=== PATIENT | male | born 1955 | race Caucasian/White ===

== ENCOUNTER 2016-11-25 09:28 | Emergency (ER) ==
[2016-11-25 09:34] VITALS: BP 96/62; TEMP 97.2; BMI 42.5
[2016-11-25 10:14] LABS: BASOPHILS # (AUTO) 0.1 K/uL (0-0.2); BASOPHILS % (AUTO) 0.5 % (0.0-3.0); EOSINOPHILS # (AUTO) 0.1 K/ul (0.0-0.7); EOSINOPHILS % (AUTO) 0.6 % (0.0-7.0); HEMATOCRIT 41.1 % (42.0-52.0); HEMOGLOBIN 14.5 g/dl (14.0-18.0); IMMATURE GRANULOCYTE % (AUTO) 0.4 % (0.0-5.0); LYMPHOCYTES # (AUTO) 1.8 K/uL (0.60-3.4); LYMPHOCYTES % (AUTO) 13.5 (10.0-50.0); MEAN CORPUSCULAR HGB CONC 35.3 (31.8-35.4); MEAN CORPUSCULAR VOLUME 82.2 fl (80.0-94.0); MONOCYTES # (AUTO) 0.8 K/uL (0.4-2.0); MONOCYTES % (AUTO) 6.1 (0-10); NEUTROPHILS # (AUTO) 10.3 K/ul (2.0-6.9); NEUTROPHILS % (AUTO) 78.9; PLATELET COUNT 298 10^3/uL (140-440); WHITE BLOOD COUNT 13.01 K/ul (4.2-10.2)
--- NOTE | 2016-11-25 10:29 | DI ---
EXAM: Chest one view HISTORY: Cough COMPARISON: None TECHNIQUE: Single view of the chest was performed FINDINGS: The lungs are grossly clear, noting left lung base, poorly visualized due to AP portable technique. There is no definite pleural effusion or visible pneumothorax. The heart is normal in s ize. The mediastinal contour is normal. There is cervical spinal fusion hardware. There are no acut e abnormalities of the bones. IMPRESSION: No acute cardiopulmonary process identified, noting limited evaluation left lung base
[2016-11-25 10:35] LABS: PARTIAL THROMBOPLASTIN TIME 25.9 SEC (23.9-40.0); PROTHROMBIN TIME 10.7 SEC (9.3-11.0)
--- NOTE | 2016-11-25 10:51 | US ---
EXAM: Ultrasound bilateral carotid duplex. HISTORY: Syncope. COMPARISON: None available. TECHNIQUE: Multiple benz scale and color Doppler images were obtained. FINDINGS: Please note that estimates of internal carotid artery stenoses are based upon NASCET diana perez. Right carotid: Mixed plaquing present which does not cause a visible 50% or greater stenosis. Peak systolic velocity measurement in the right internal carotid artery is 1.4 meters per second. Right internal to common carotid artery peak systolic velocity ratio measures 1.1. End diastolic velocit y measurement in the right internal carotid artery is 0.2 meters per second. Flow in the right vert ebral artery is antegrade. Left carotid: Mixed plaquing present which does not cause a visible 50% or greater stenosis. There are plaquing appears greater on the left than the right. Peak systolic velocity measurement in the left internal carotid artery is 1.5 meters per second. Left internal to common carotid artery peak systolic velocity ratio measures 1.4. End diastolic velocity measurement in the left internal pemberton tid artery measures 0.3 meters per second. Flow in the left vertebral artery is antegrade. IMPRESSION: 1. Atherosclerosis without visualized 50% or greater stenosis, greater on the left. Mildly elevate d velocities in both internal carotid arteries without evidence for 50% or greater stenosis. 2. Antegrade flow in both vertebral arteries.
--- NOTE | 2016-11-25 10:52 | CT ---
EXAM: CT BRAIN HISTORY: Fall, head injury TECHNIQUE: CT brain without intravenous contrast. 5-mm axial sections with Reformations. COMPARISON: None FINDINGS: Brain is unremarkable without distinct evidence of hemorrhage or large vessel distribution recent ischemic infarction. There is no suggestion of acute hydrocephalus or subdural fluid collection. N o mass or mass effect. Cranium is within normal limits. Mastoid air cells are aerated. The visualized paranasal sinuses r eveal possible mucosal thickening posteriorly in the left maxillary sinus. IMPRESSION: No injuries identified.
--- NOTE | 2016-11-25 10:57 | CT ---
EXAM: CT cervical spine without contrast. HISTORY: Initial presentation for neck injury due to a fall. COMPARISON: None available. TECHNIQUE: Multiple axial images of the cervical spine were obtained without intravenous contrast. Images were reformatted in the sagittal and coronal planes. FINDINGS: ACDF changes noted from C4-C6 with osseous incorporation across the C4-5 vertebral bodies and to a lesser extent the C5-6 vertebral bodies. Hardware appears intact. Curvature and alignmen t are normal. Vertebral body heights are maintained. There is mild loss of disc height at C3-4. N o fracture or subluxation identified. Disc osteophyte formation causes mild central canal stenosis at C3-4. Multilevel uncovertebral hypertrophy and facet arthropathy cause multilevel neural foramin al narrowing, moderate to severe at C3-4 bilaterally, C5-6 on the right and C6-7 on the right and mo re mild elsewhere. Paravertebral soft tissues without acute abnormality. Atherosclerotic calcifica tions are present in the lung apices are clear.. IMPRESSION: 1. No fracture or subluxation. 2. Postoperative and degenerative changes as described.
[2016-11-25] MEDS ORDERED: SODIUM CHLORIDE 1,000 ML IV STA (11:05)
[2016-11-25 11:06] LABS: ALBUMIN 3.7 g/dL (3.4-5.0); ALBUMIN/GLOBULIN RATIO 1.19; BILIRUBIN,TOTAL 0.74 mg/dL (0.00-1.20); CALCIUM 9.3 mg/dL (8.2-10.2); TOTAL PROTEIN 6.8 g/dL (5.8-8.1); TROPONIN I 0.11 ng/ml (0.0000-0.4000)
[2016-11-25 11:07] LABS: CREATININE 7.58 mg/dL (0.60-1.10)
[2016-11-25 11:08] LABS: BUN/CREATININE RATIO 17.94
[2016-11-25 11:10] LABS: CREATINE KINASE MB 7.2 ng/ml (0.0-3.6)
[2016-11-25] MEDS ORDERED: ROCEPHIN 1 GM in SODIUM CHLORIDE 50 ML IV STA (11:15)
[2016-11-25] MEDS ORDERED: ROCEPHIN ONE (11:21)
--- NOTE | 2016-11-25 11:33 | ED.PDOC ---
General ED Provider: Dr. CANDACE KELLEY Chief Complaint: Weakness Stated Complaint: SYNCOPE Time Seen by Physician: 09:30 Mode of Arrival: Wheelchair Information Source: Patient, Police, Nurse Exam Limitations: No limitations Primary Care Provider: MARIA E JEWELL Nursing and Triage Documentation Reviewed and Agree: Yes Neurological Complaint Exam - Syncope/Near Syncope Complaint/Exam Onset/Duration: intermittent for 7 days appeared weak arrived with left supper eyelid bruse Symptoms Are: Still present (interms of left eyelid brsing and abrasion face) Number of Episodes: intermittent x 7 days Frequency of Episodes: see above Episodes Witnessed: No (police stated none witnessed ) Associated Head Trauma: No (but due to facial trauma ct brain cspine was obtained ) Activity at Onset: With exertion (walking) Aggravating: None Alleviating: Reports: Spontaneous resolution Associated Signs and Symptoms: Reports: Weakness. Denies: Pain, Decreased oral intake, Vomiting, Diarrhea, GI blood loss, Short of air, Chest pain, Palpitations, Diaphoresis, Lightheadedness, Dizziness, AMS, Numbness, Headache, Seizure, Remote head trauma, Recent head trauma Related History: Similar episode (over 7 days span) Cardiac Risk Factors: Reports: Hypertension GI Bleed Risk Factors: Reports: None Dysrhythmia Risk Factors: Reports: >45 years old (history of afib which was abelated 10 years ago) Related Surgical History: Reports: None JVD Present: No Carotid Bruit Present: No Rectal Heme Positive: No Glascow Coma Scale (see protocol): 15 Nystagmus Present: No Gag Reflex Present: Yes Meningeal Signs Positive: No Focal Weakness: Present: None Focal Sensory Loss: Present: None Gait: Unable [id number]: Normal Findings Differential Diagnoses: CAD, TN, Dysrhythmia, GI Bleed, Metabolic Reaction, Pulmonary Embolism Quality Indicators for Cardiac Chest Pain: EKG in 10min. Quality Indicator For Non-Traumatic Chest Pain/Syncope: EKG Performed Quality Indicators for AMI: EKG in 10min. Review of Systems - Review Of Systems Constitutional: Reports: Malaise, Weakness Eyes: Reports: No symptoms Ears, Nose, Mouth, Throat: Reports: No symptoms Respiratory: Reports: No symptoms Cardiac: Reports: Syncope GI: Reports: No symptoms : Reports: No symptoms Musculoskeletal: Reports: No symptoms Skin: Reports: Other (BRUSING LEFT ORBIT AND FACE) Neurological: Reports: No symptoms Endocrine: Reports: No symptoms Hematologic/Lymphatic: Reports: No symptoms All Other Systems: Reviewed and Negative Past Medical History - Past Medical History Previously Healthy: No Endocrine: Reports: None Cardiovascular: Reports: Hypertension, A-Fib (intermittent was abelated 10 years ago) Respiratory: Reports: None Hematological: Reports: None Gastrointestinal: Reports: GERD Genitourinary: Reports: None Neuro/Psych: Reports: None Musculoskeletal: Reports: None Cancer: Reports: None - Surgical History General Surgical History: Reports: Unknown - Family History Family History: Reports: Unknown - Social History Smoking Status: Never smoker Hx Substance Use: No Alcohol Screening: None Physical Exam - Physical Exam Appearance: Well-appearing Eyes: DINA, EOMI (left eyelid brused ) ENT: Ears normal, Nose normal, Oropharynx normal Respiratory: Airway patent, Breath sounds clear, Breath sounds equal, Respirations nonlabored Cardiovascular: RRR, Pulses normal, No rub, No murmur GI/: Soft, Nontender, No masses, Bowel sounds normal, No Organomegaly Musculoskeletal: Normal strength, ROM intact, No edema, No calf tenderness Skin: Warm, Dry, Normal color Neurological: Sensation intact, Motor intact, Reflexes intact, Cranial nerves intact, Alert, Oriented Psychiatric: Affect appropriate, Mood appropriate Interpretation - Radiology Interpretation Radiology Interpretation By: Radiologist (negative c spine , brain ct for acute event) Radiology Results: Negative Exam Interpreted: 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 Rate: Normal Rhythm: Sinus Ectopy: None (normal sinus rytm normal axis elevated QT INTERVAL RBBB ) Re-Evaluation - Re-Evaluation Time of Re-Evaluation: 10:30 Status: Improved Vital Signs Stable: Yes Pain Level: 0 Appearance: NAD Lungs: Clear Skin: Warm and Dry Neuro: Alert and Oriented X3 CV: RRR - Re-Evaluation Time of Re-Evaluation: 11:44 Status: Improved Vital Signs Stable: Yes Pain Level: 0 Appearance: NAD Skin: Warm and Dry Neuro: Alert and Oriented X3 CV: RRR Physician Notification - Case Discussed Physician Notified: Patricia Polk Time of Notification: 11:45 (TRANSFER TO [facility] ) Critical Care Note - Critical Care Note Total Time (mins): 0 Course - Course Hematology/Chemistry: 11/25/16 10:05 11/25/16 10:05 Orders, Labs, Meds: Lab Review 11/25/16 10:05 WBC 13.01 H RBC 5.00 Hgb 14.5 Hct 41.1 L MCV 82.2 MCH 29.0 MCHC 35.3 RDW Coeff of Bertha 12.2 Plt Count 298 Immature Gran % (Auto) 0.4 Neut % (Auto) 78.9 Lymph % (Auto) 13.5 Darke % (Auto) 6.1 Eos % (Auto) 0.6 Baso % (Auto) 0.5 Immature Gran # (Auto) 0.1 Neut # 10.3 H Lymph # 1.8 Darke # 0.8 Eos # 0.1 Baso # 0.1 PT 10.7 INR 1.04 APTT 25.9 Sodium 129 L Potassium 4.0 Chloride 87 L Carbon Dioxide 21 L Anion Gap 25.0 BUN 136 H* Creatinine 7.58 H* Estimated GFR (MDRD) 7.00 BUN/Creatinine Ratio 17.94 Glucose 112 Calcium 9.3 Total Bilirubin 0.74 AST 26 ALT 66 Alkaline Phosphatase 92 Total Creatine Kinase 182 CK-MB (CK-2) 7.2 H* CK-MB (CK-2) % 3.80823 Troponin I 0.1100 Total Protein 6.8 Albumin 3.7 Globulin 3.1 Albumin/Globulin Ratio 1.19 TSH 0.689 Free T4 1.10 Orders Category Date Time Status EKG-(ED ONLY) Stat CARDIO 11/25/16 09:47 Completed BLOOD CULTURE Stat LAB 11/25/16 10:05 Received CBC W/ AUTO DIFF Stat LAB 11/25/16 10:05 Completed COMPREHENSIVE METABOLIC PANEL Stat LAB 11/25/16 10:05 Completed CREATINE KINASE Stat LAB 11/25/16 10:05 Completed FREE T4 (FREE THYROXINE) Stat LAB 11/25/16 10:05 Completed LACTIC ACID Stat LAB 11/25/16 11:14 Ordered PARTIAL THROMBOPLASTIN TIME Stat LAB 11/25/16 10:05 Completed PT WITH INR Stat LAB 11/25/16 10:05 Completed THYROID STIMULATING HORMONE Stat LAB 11/25/16 10:05 Completed TROPONIN I Stat LAB 11/25/16 10:05 Completed UA [URINALYSIS C & S IF INDICATED] Stat LAB 11/25/16 09:49 Uncollected Ceftriaxone Sodium [Rocephin] MEDS 11/25/16 11:21 Discontinued 1 gm .ROUTE .STK-MED ONE Ceftriaxone Sodium [Rocephin] 1 gm MEDS 11/25/16 11:15 Active 0.9 % Sodium Chloride [Sodium Chloride] 50 ml IV ONCE Sodium Chloride 0.9% [Sodium Chloride] 1,000 ml MEDS 11/25/16 11:05 Active IV BOLUS CHEST, 1V AP ONLY Stat RADS 11/25/16 09:[address] ABD/PEL WO RENAL STONE PROT Stat RADS 11/25/16 11:[address] CERVICAL SPINE W/O CONTRAST Stat RADS 11/25/16 09:[address] HEAD W/O CONTRAST Stat RADS 11/25/16 09:48 Completed ULTRASOUND DOPPLER CAROTID [U/S DOPPLER CAROTID] Stat RADS 11/25/16 09:47 Completed Medications Generic Name Dose Route Start Last Admin Trade Name Freq PRN Reason Stop Dose Admin Sodium Chloride 1,000 mls @ 1,000 mls/hr 11/25/16 11:05 11/25/16 11:07 Sodium Chloride IV 11/25/16 12:04 1,000 mls/hr BOLUS STA Administration Ceftriaxone Sodium 1 gm/ 50 mls @ 75 mls/hr 11/25/16 11:15 11/25/16 11:26 Sodium Chloride IV 11/25/16 11:54 75 mls/hr ONCE STA Administration Vital Signs: Temp Pulse Resp BP Pulse Ox 11/25/16 09:28 97.2 F L 80 18 96/62 98 Departure - Departure Time of Disposition: 11:45 Disposition: HOME SELF-CARE Discharge Problem: Renal failure Instructions: Weakness (ED) Condition: Good Pt referred to PMD for follow-up: Yes (TRANSFER TO [facility] ) Allergies/Adverse Reactions: Allergies [id number] Reductase Inhibitor Adverse Reaction (Verified 11/25/16 09:34) Home Medications: Ambulatory Orders Gabapentin [Neurontin] 300 mg PO BID 11/25/16 Metoprolol Tartrate [Lopressor] 25 mg PO BID 11/25/16 Omeprazole [Prilosec] 20 mg PO QDAC 11/25/16 Disposition Discussed With: Patient
[2016-11-25] MEDS ORDERED: URO-JET MUCOUSMEMB STA (11:47)
--- NOTE | 2016-11-25 12:07 | CT ---
EXAM: CT abdomen pelvis without contrast HISTORY: Acute renal failure COMPARISON: None TECHNIQUE: CT abdomen pelvis performed without intravenous contrast. Coronal and sagittal reformat christopher images obtained. FINDINGS: There is granulomatous calcification of the lung bases. No free air. No acute abnormali ties of the bones. Evaluation organ parenchyma limited without contrast. Heart normal in size. Li koko appears normal. Gallbladder appears normal. Pancreas appears normal. Granulomatous calcificat ion in the spleen. Spleen otherwise appears normal. Adrenals appear normal. No hydronephrosis or nephrolithiasis. There is a 0.7 cm hyperdense left renal cyst. There is 2.2 cm left parapelvic cys t. No hydronephrosis or nephrolithiasis. No calculi visualized in the normal course of the ureters . Bladder is only mildly distended and poorly evaluated. Suspect mild bladder wall thickening. Pr ostate normal in size with calcification. Small bilateral fat containing inguinal hernias Aorta is normal in caliber with atherosclerosis of the aorta and its branches. No lymphadenopathy or ascite s. Stomach appears normal. No dilated loops small bowel. Appendix appears normal. Mild colonic d iverticulosis. Small fat-containing umbilical hernia. IMPRESSION: 1. No hydronephrosis or nephrolithiasis. 2. Suspect mild bladder wall thickening may relate to cystitis or change from chronic outlet obstru ction. Recommend clinical correlation. 3. Left parapelvic cyst. Sub centimeter hyperdense/hemorrhagic left renal cyst. 4. Mild colonic diverticulosis. 5. Atherosclerosis.
[2016-11-25] MEDS ORDERED: SODIUM CHLORIDE 500 ML IV STA (12:15)
[2016-11-25] MEDS ORDERED: LOTRISONE 15 GM TP STA (12:23)
[2016-11-25 12:53] LABS: BILIRUBIN,URINE Negative (NEGATIVE); KETONES,URINE Negative (NEGATIVE); LEUKOCYTE ESTERASE ,URINE Negative (NEGATIVE); NITRITE,URINE Negative (NEGATIVE); PROTEIN,URINE Negative (NEGATIVE); URINE, BLOOD 1+ (NEGATIVE)
[2016-11-25 12:54] LABS: ADD URINE MICROSCOPIC YES
== END 2016-11-25 13:41 | disposition short-term general hospital (02) ==
LOC: ED 09:28
DX: N19 Unspecified kidney failure (principal); R53.1 Weakness; S00.12XA Contusion of left eyelid and periocular area, initial encounter; S00.81XA Abrasion of other part of head, initial encounter; I10 Essential (primary) hypertension; L30.4 Erythema intertrigo
CPT/HCPCS: 36415; 74176; 80053; 81001; 82550; 82553; 83605; 84439; 84443; 84484; 85025; 85379; 85610; 85730; 87040; 93005; 93010; 96361; 96365; 99285

== ENCOUNTER 2016-11-25 13:31 | Outpatient (CLI) ==
[2016-11-25 09:34] VITALS: BMI 42.5
== END 2016-11-25 13:32 | disposition home or self-care (01) ==
LOC: AMBL 13:31
PROVIDERS: ATTEND Internal Medicine
DX: N19 Unspecified kidney failure (principal)

== ENCOUNTER 2017-01-06 09:17 | Outpatient (CLI) ==
[2017-01-06 09:31] LABS: BASOPHILS # (AUTO) 0.1 K/uL (0-0.2); BASOPHILS % (AUTO) 0.7 % (0.0-3.0); EOSINOPHILS # (AUTO) 0.3 K/ul (0.0-0.7); EOSINOPHILS % (AUTO) 2.8 % (0.0-7.0); HEMATOCRIT 37.5 % (42.0-52.0); HEMOGLOBIN 12.6 g/dl (14.0-18.0); IMMATURE GRANULOCYTE % (AUTO) 0.4 % (0.0-5.0); LYMPHOCYTES # (AUTO) 2.2 K/uL (0.60-3.4); LYMPHOCYTES % (AUTO) 20.8 (10.0-50.0); MEAN CORPUSCULAR HEMOGLOBIN 29.7 pg (27.0-31.0); MEAN CORPUSCULAR HGB CONC 33.6 (31.8-35.4); MEAN CORPUSCULAR VOLUME 88.4 fl (80.0-94.0); MONOCYTES # (AUTO) 0.7 K/uL (0.4-2.0); MONOCYTES % (AUTO) 6.5 (0-10); NEUTROPHILS # (AUTO) 7.4 K/ul (2.0-6.9); NEUTROPHILS % (AUTO) 68.8; PLATELET COUNT 252 10^3/uL (140-440); RED BLOOD COUNT 4.24 10^6/ul (4.70-6.10); WHITE BLOOD COUNT 10.74 K/ul (4.2-10.2)
[2017-01-06 09:35] LABS: ADD URINE MICROSCOPIC NO; BILIRUBIN,URINE Negative (NEGATIVE); KETONES,URINE Negative (NEGATIVE); LEUKOCYTE ESTERASE ,URINE Negative (NEGATIVE); NITRITE,URINE Negative (NEGATIVE); PROTEIN,URINE Negative (NEGATIVE); URINE, BLOOD Negative (NEGATIVE)
[2017-01-06 10:11] LABS: ALBUMIN 3.5 g/dL (3.4-5.0); ALBUMIN/GLOBULIN RATIO 1.03; ANION GAP 12.4; BILIRUBIN,TOTAL 0.43 mg/dL (0.00-1.20); BUN/CREATININE RATIO 7.89; CALCIUM 9.4 mg/dL (8.2-10.2); CHOL/HDL RATIO 7.5 (4.5-6.4); CREATININE 1.14 mg/dL (0.60-1.10); POTASSIUM 3.4 mmol/L (3.5-5.1); TOTAL PROTEIN 6.9 g/dL (5.8-8.1)
== END 2017-01-06 09:18 | disposition home or self-care (01) ==
LOC: LAB 09:17
PROVIDERS: ATTEND Nurse Practitioner Family
DX: I10 Essential (primary) hypertension (principal); E66.9 Obesity, unspecified; Z87.448 Personal history of other diseases of urinary system
CPT/HCPCS: 36415; 80053; 80061; 81001; 84439; 84443; 85025